=== PATIENT | female | born 1955 | race Caucasian/White ===

== ENCOUNTER 2022-03-07 09:47 | Day surgery (SDC) | payer MEDICARE, BC ==
[~2022-03-07] VITALS: Ht 157.5 cm; Wt 71.7 kg
[~2022-03-07 09:47] MED LIST: ACTOPLUS M15 MG/500 PO; ATIVAN1 MG PO; B-12500 MC1 PO; COLACE100 MG PO; DIFLUCAN150 MG PO; FENOFIBRATE145 MG PO; FUROSEMIDE20 MG PO; ICOSAPENT ETHYL1 GM PO; JARDIANCE10 MG PO; KAPSPARGO SPRIN25 MG; KLOR-CON M1010 MEQ PO; LEVOTHYROXINE100 MC2 PO; LISINOPRIL2.5 MG PO; LORADAMED10 MG PO; MECLIZINE25 M1 PO; METFORMIN500 M2 PO; METOPROLOL SUCC50 MG PO; MONTELUKAST SOD10 MG PO; NORVASC5 M1 PO; PHRENILIN1 TAB PO; PROBIOTI2; PROTONIX40 M2 PO; REPATHA SUR140 MG/ML IN; ROSUVASTATIN CA40 MG PO; TRAZODONE HYDR150 MG PO; VITAMIN D1000 UNIT PO
[2022-03-07] MEDS ORDERED: ASPIRIN81 MG PO (10:34)
[2022-03-07] MEDS ORDERED: PERCOCET 5/321 COMBO PO (12:16)
[2022-03-07 13:31] VITALS: BP 124/67
[2022-03-09] MEDS ORDERED: AMOX/K CLAV875 M1 PO (10:00)
[2022-03-09] MEDS ORDERED: MEDDOSEPAK PO (10:00)
== END 2022-03-07 14:10 | disposition home or self-care (01) ==
LOC: ORM 09:47
PROVIDERS: ATTEND Surgery
PROC: 0FT44ZZ Resection of Gallbladder, Percutaneous Endoscopic Approach (ICD-10-PCS; principal; 2022-03-07)
DX: K80.10 Calculus of gallbladder with chronic cholecystitis without obstruction (principal); I10 Essential (primary) hypertension; E11.9 Type 2 diabetes mellitus without complications; E89.0 Postprocedural hypothyroidism; Z79.84 Long term (current) use of oral hypoglycemic drugs
CPT/HCPCS: J0131; J1100